=== PATIENT | male | born 1955 | race Two or more races ===

== ENCOUNTER 2022-10-21 22:12 | Emergency (ER) | payer OTHER ==
[~2022-10-21] VITALS: Ht 180.3 cm; Wt 106.6 kg
[2022-10-21] MEDS ORDERED: COZAAR25 MG PO (22:40)
[2022-10-21] MEDS ORDERED: GLUMETZA500 MG (22:41)
== END 2022-10-21 23:02 | disposition home or self-care (01) ==
LOC: ER 22:12
DX: M62.830 Muscle spasm of back (principal); I10 Essential (primary) hypertension; E11.9 Type 2 diabetes mellitus without complications; Z79.84 Long term (current) use of oral hypoglycemic drugs